=== PATIENT | male | born 1975 | race Caucasian/White ===

== ENCOUNTER 2023-08-17 12:46 | Emergency (ER) | payer BC ==
[~2023-08-17] VITALS: Ht 170.2 cm; Wt 92.5 kg
[2023-08-17 12:55] VITALS: BP_SYST 137; PULSE 82; RESP 17; TEMP 98; O2SAT 98
[2023-08-17 14:21] LABS: BILIRUBIN,URINE NEGATIVE (NEGATIVE); BLOOD, URINE NEGATIVE (NEGATIVE); CLARITY/URINE CLEAR (CLEAR); COLOR,URINE YELLOW (YELLOW); GLUCOSE,URINE 1+ (NEGATIVE); KETONES,URINE NEGATIVE (NEGATIVE); LEUKOCYTE ESTERASE ,URINE NEGATIVE (NEGATIVE); NITRITE, URINE NEGATIVE (NEGATIVE); PROTEIN URINE NEGATIVE (NEGATIVE); UROBILINOGEN,URINE 0.2 (0.2-1.0)
[2023-08-17 16:00] LABS: INFLUENZA TYPE A Negative (NEGATIVE); INFLUENZA TYPE B NEGATIVE (NEGATIVE)
[2023-08-17] MEDS ORDERED: IBUP-1969 PO (16:46)
[2023-08-17 17:08] VITALS: BP_SYST 137; PULSE 82; RESP 17; TEMP 98; O2SAT 98
== END 2023-08-17 17:08 | disposition home or self-care (01) ==
LOC: SED 12:46
DX: R30.0 Dysuria (principal); Z20.822 Contact with and (suspected) exposure to COVID-19
CPT/HCPCS: 36415; 81001; 81003; 82948; 99283